=== PATIENT | male | born 1995 | race African-American/Black ===

== ENCOUNTER 2023-06-06 06:22 | Emergency (ER) | payer OTHER ==
[~2023-06-06] VITALS: Ht 185.4 cm; Wt 82.0 kg
[2023-06-06 06:35] VITALS: BP 121/56; PULSE 54; RESP 18; TEMP 97.6; O2SAT 99
[2023-06-06] MEDS ORDERED: DOXY100C5 MT (07:02)
== END 2023-06-06 07:20 | disposition home or self-care (01) ==
LOC: ER 06:22
DX: L03.90 Cellulitis, unspecified (principal); L30.9 Dermatitis, unspecified
CPT/HCPCS: 99283